=== PATIENT | male | born 1960 | race Caucasian/White ===

== ENCOUNTER 2016-05-29 09:23 | Day surgery (SDC) | payer OTHER ==
[2016-05-28 11:44] VITALS: BMI 39.4
[2016-05-29] MEDS ORDERED: PROPOFOL 20 ML ONE ×2 (09:30→10:23)
[2016-05-29 10:24] VITALS: TEMP 98.9
[2016-05-29 11:34] VITALS: BP 115/58; PULSE 79
--- NOTE | 2016-05-30 11:56 | PATH ---
Surgical Pathology Report Patient Name: MEGHAN BOB [facility]. Rec. #: [id number] /Age/Gender: 1960 (Age: 55) / M Account: [id number] Location: U-ENDOSCOPY Taken: 05/29/2016 Received: 05/29/2016 Reported: 05/30/2016 Physicians: Reynaldo Padilla D.O. Specimen(s) Received BX HEPATIC FLEXURE POLYP Clinical History Colon cancer surveillance Colon anastomosis, colon polyp (hepatic flexure) Final Diagnosis COLON, HEPATIC FLEXURE, POLYP, BIOPSY: POLYPOID FRAGMENT OF COLONIC MUCOSA WITH SURFACE HYPERPLASTIC CHANGE. Electronically Signed Miguel Angel Art M.D. Gross Description Received in formalin, labeled "biopsy hepatic flexure" is a hou, irregular portion of soft tissue measuring 0.4 cm in greatest dimension. The specimen is submitted in toto in one cassette. /05/29/201605/29/2016
== END 2016-05-29 11:34 | disposition home or self-care (01) ==
LOC: JASU-ENDO 09:23
PROVIDERS: ATTEND Internal Medicine Gastroenterology
PROC: 0DBL8ZX Excision of Transverse Colon, Via Natural or Artificial Opening Endoscopic, Diagnostic (ICD-10-PCS; principal; 2016-05-29 10:00)
DX: Z85.038 Personal history of other malignant neoplasm of large intestine (principal); K63.5 Polyp of colon; K64.8 Other hemorrhoids; Z98.0 Intestinal bypass and anastomosis status
CPT/HCPCS: 88305-TC

== ENCOUNTER 2020-08-16 04:18 | Day surgery (SDC) | payer OTHER ==
[2020-08-14 15:11] VITALS: BMI 37.3
[2020-08-16 11:36] VITALS: BP 115/61; PULSE 64
[2020-08-16 11:46] VITALS: TEMP 97
[2020-08-16] MEDS ORDERED: LACTATED RINGERS SOLUTION 1,000 ML IV SCH (12:00)
== END 2020-08-16 11:35 | disposition home or self-care (01) ==
LOC: JASU-ENDO 04:18
PROVIDERS: ATTEND Internal Medicine Gastroenterology
PROC: 0DBP8ZX Excision of Rectum, Via Natural or Artificial Opening Endoscopic, Diagnostic (ICD-10-PCS; 2020-08-16)
PROC: 0DBM8ZX Excision of Descending Colon, Via Natural or Artificial Opening Endoscopic, Diagnostic (ICD-10-PCS; 2020-08-16)
PROC: 0DBK8ZX Excision of Ascending Colon, Via Natural or Artificial Opening Endoscopic, Diagnostic (ICD-10-PCS; principal; 2020-08-16 09:56)
DX: Z12.11 Encounter for screening for malignant neoplasm of colon (principal); D12.2 Benign neoplasm of ascending colon; D12.4 Benign neoplasm of descending colon; K62.1 Rectal polyp; D13.9 Benign neoplasm of ill-defined sites within the digestive system; K64.8 Other hemorrhoids; K59.89 Other specified functional intestinal disorders; Z85.038 Personal history of other malignant neoplasm of large intestine; Z98.0 Intestinal bypass and anastomosis status
CPT/HCPCS: 88305-TC

== ENCOUNTER 2024-02-18 05:17 | Day surgery (SDC) | payer OTHER ==
[2024-02-10 10:53] VITALS: BMI 38.6
[2024-02-18 09:47] VITALS: TEMP 98
[2024-02-18 10:18] VITALS: BP 108/61; PULSE 75; RESP 16
== END 2024-02-18 10:37 | disposition home or self-care (01) ==
LOC: JASU-ENDO 05:17
PROVIDERS: ATTEND Internal Medicine Gastroenterology
PROC: 0DBP8ZX Excision of Rectum, Via Natural or Artificial Opening Endoscopic, Diagnostic (ICD-10-PCS; 2024-02-18)
PROC: 0DBH8ZX Excision of Cecum, Via Natural or Artificial Opening Endoscopic, Diagnostic (ICD-10-PCS; principal; 2024-02-18 09:00)
DX: Z12.11 Encounter for screening for malignant neoplasm of colon (principal); D12.0 Benign neoplasm of cecum; K62.1 Rectal polyp
CPT/HCPCS: 88305-TC; 88342-TC